=== PATIENT | male | born 1980 | race Caucasian/White ===

== ENCOUNTER 2017-05-29 07:55 | Emergency (ER) | payer OTHER ==
[~2017-05-29] VITALS: Ht 180.3 cm; Wt 113.4 kg
[2017-05-29 07:58] VITALS: BP_SYST 146
[2017-05-29 08:22] VITALS: BP_SYST 146
== END 2017-05-29 08:22 | disposition home or self-care (01) ==
LOC: SED 07:55
DX: Z48.01 Encounter for change or removal of surgical wound dressing (principal)
CPT/HCPCS: 99282